=== PATIENT | female | born 1995 | race Caucasian/White ===

== ENCOUNTER 2017-04-10 02:51 | Inpatient (IN) | payer OTHER ==
[2017-04-10 04:52] LABS: BASOPHIL 0.1 % (0-2.0); MCH 26.7 pg (25.7-33.7); MCHC 32.6 g/dl (32.0-36.0); MEAN PLT VOLUME 7.5 fl (7.5-11.1); NEUTROPHILS 90.7 % (42.8-82.8); PLATELET COUNT 254 K/MM3 (134-434); RDW 15.3 % (11.6-15.6); WHITE BLOOD COUNT 16.1 K/mm3 (4.0-10.0)
--- NOTE | 2017-04-10 04:52 | HP ---
<Rigoberto Sanz - Last Filed: 04/10/17 04:47> Past Medical History - Primary Care Physician PCP:: Rigoberto Sanz - Admission Chief Complaint: 40.2 weeks, rom, labor History of Present Illness: 21 yo f , edc by sono 04/07/17, c/o contraction and leakage of fluid since 2 am,clear fluid, cx 2 cm 80 vx -3 mr, nitazine positive, clear fluid, fhr cat 1. contraction q 3 min History Source: Patient Limitations to Obtaining History: No Limitations - Past Medical History ...: 2 ...Para: 1 ... Weeks Gestation by Dates: 40.2 ...EDC by Dates: 04/08/17 ...EDC by Sono: 04/07/17 Heme/Onc: Yes: Anemia - Past Surgical History Hx Myomectomy: No Hx Transabdominal Cerclage: No - Smoking History Smoking history: Never smoked Have you smoked in the past 12 months: No - Alcohol/Substance Use Hx Alcohol Use: No History of Substance Use: reports: None - Social History History of Recent Travel: No Home Medications - Allergies Allergies/Adverse Reactions: Allergies Allergy/AdvReac Type Severity Reaction Status Date / Time No Known Allergies Allergy Verified 04/10/17 01:16 - Home Medications Home Medications: Ambulatory Orders Ferrous Sulfate [Feosol] 325 mg PO DAILY 03/11/17 Vitamins (Sjr) - 1 tab PO DAILY 03/11/17 Review of Systems - Review of Systems Constitutional: reports: No Symptoms Eyes: reports: No Symptoms HENT: reports: No Symptoms Neck: reports: No Symptoms Cardiovascular: reports: No Symptoms Respiratory: reports: No Symptoms Gastrointestinal: reports: No Symptoms Genitourinary: reports: No Symptoms Breasts: reports: No Symptoms Reported Musculoskeletal: reports: No Symptoms Integumentary: reports: No Symptoms Neurological: reports: No Symptoms Endocrine: reports: No Symptoms Hematology/Lymphatic: reports: No Symptoms Psychiatric: reports: No Symptoms Physical Exam - Maternity Constitutional: Yes: Well Nourished, No Distress, Calm Eyes: Yes: WNL, Conjunctiva Clear, EOM Intact HENT: Yes: WNL, Atraumatic, Normocephalic Neck: Yes: WNL, Supple, Trachea Midline Cardiovascular: Yes: WNL, Regular Rate and Rhythm Breast(s): Yes: WNL - Abdominal Exam/OB Fundal Height: 40 Number of Fetuses: Single Presentation: Vertex Contractions: Yes Regularity: Regular Intensity: Mod/Strong Monitor Mode: External Heart Rate Location: [facility] Category: I Accelerations: Uniform Decelerations: None - Vaginal Exam/OB Vaginal Bleediing: No Speculum Exam: No Dilatation (cm): 2 cm Effacement (%): 80 Amniotic Membrane Status: Ruptured Nitrazine Test: Positive Amniotic Fluid: Yes: Clear Presentation: Vertex/Position Station: -3 - Physical Exam Musculoskeletal: Yes: WNL Extremities: Yes: WNL Edema: Yes Edema: LLE: Trace, RLE: Trace Hemorrhage Risk Assessment - Risk Factors Medium Risk Factors: Yes: None High Risk Factors: Yes: None Risk Score: 1 Risk Level: Medium Risk Problem List - Problems (1) Post term over 40 weeks Code(s): O48.0 - POST-TERM (2) membrane rupture Code(s): ZYA6913 - (3) Labor established Code(s): UJO9427 - Assessment/Plan admit, heart monitoring, pain management <Alis Palumbo - Last Filed: 04/12/17 08:11> Past Medical History - Admission Chief Complaint: Labor pain History of Present Illness: 21 yo Para 0, admitted for labor pain. History Source: Patient Limitations to Obtaining History: No Limitations - Past Medical History ...: 1 ...Para: 0 ...EDC by Dates: 04/08/17 ...EDC by Sono: 04/07/17 - Past Surgical History Past Surgical History: Yes: None Hx Myomectomy: No Hx Transabdominal Cerclage: No - Alcohol/Substance Use Hx Alcohol Use: No History of Substance Use: reports: None - Social History Usual Living Arrangement: Yes: With Significant Other History of Recent Travel: No Family Disease History - Family Disease History Family History: Unremarkable Review of Systems - Review of Systems Constitutional: reports: No Symptoms Eyes: reports: No Symptoms HENT: reports: No Symptoms Neck: reports: No Symptoms Cardiovascular: reports: No Symptoms Respiratory: reports: No Symptoms Gastrointestinal: reports: No Symptoms Genitourinary: reports: Pain Breasts: reports: No Symptoms Reported Musculoskeletal: reports: No Symptoms Integumentary: reports: No Symptoms Neurological: reports: No Symptoms Endocrine: reports: No Symptoms Hematology/Lymphatic: reports: No Symptoms Psychiatric: reports: No Symptoms Pain Intensity: 6 Physical Exam - Maternity Vital Signs: Vital Signs Temperature 98.3 F 04/11/17 22:00 Pulse Rate 93 H 04/11/17 22:00 Respiratory Rate 18 04/11/17 22:00 Blood Pressure 101/56 04/11/17 22:00 O2 Sat by Pulse Oximetry (%) 100 04/10/17 10:10 Constitutional: Yes: Well Nourished Eyes: Yes: Conjunctiva Clear HENT: Yes: Atraumatic Neck: Yes: Supple, Trachea Midline Cardiovascular: Yes: Regular Rate and Rhythm Lungs: Clear to auscultation Breast(s): Yes: WNL - Abdominal Exam/OB Number of Fetuses: Single Presentation: Vertex - Vaginal Exam/OB Vaginal Bleediing: No Speculum Exam: No Amniotic Membrane Status: Intact Station: -2 - Physical Exam ...Motor Strength: WNL Psychiatric: Yes: Alert, Oriented - Labs Lab Results: CBC, BMP 04/11/17 07:20 04/10/17 04:20
[2017-04-10 04:55] LABS: INR 0.97 (0.82-1.09); PROTHROMBIN TIME (PATIENT) 10.7 SEC (9.98-11.88)
[2017-04-10] MEDS ORDERED: PROMETHAZINE HCL 25 MG/1 ML VIAL IVPUSH ONE (04:56)
[2017-04-10] MEDS ORDERED: BUTORPHANOL TARTRATE 1 MG/ML VIAL IVPUSH ONE (04:56)
[2017-04-10] MEDS ORDERED: DEXTROSE 5%-LACTATED RINGERS 1,000 ML IV SCH (05:00)
[2017-04-10 05:02] LABS: ANION GAP 12 (8-16); CALCIUM 8.1 mg/dL (8.5-10.1); CO2 20 mmol/L (21-32); CREATININE 0.4 mg/dL (0.55-1.02); GLUCOSE,RANDOM 97 mg/dL (74-106)
[2017-04-10 06:27] VITALS: BMI 25.4
[2017-04-10] MEDS: D5W-LR W/ 20 UNITS OXYTOCIN 1,000 ML IV SCH ×2 (08:50→10:21)
[2017-04-10] MEDS ORDERED: BENZOCAINE 28 GM HEMORRHOIDAL OINTMENT TP PRN (09:33)
[2017-04-10] MEDS ORDERED: WITCH HAZEL 50% (TUCKS) 40 PAD/JAR PAD TP PRN (09:33)
[2017-04-10] MEDS ORDERED: METHYLERGONOVINE MALEATE 0.2 MG/1 ML AMP IM PRN (09:33)
[2017-04-10] MEDS ORDERED: BISACODYL 10 MG SUPP.RECT RC PRN (09:33)
[2017-04-10] MEDS: IBUPROFEN 600 MG TABLET (FP) PO PRN ×2 (09:41→22:44)
--- NOTE | 2017-04-10 09:43 | PN ---
Delivery - Delivery Vaginal Delivery: Spontaneous Type of Anesthesia: Local Episiotomy/Laceration: Midline EBL (cc): 300 Delivery, Single - Stages of Labor Date 1st Stage Initiatied: 04/09/17 Time 1st Stage Initiated: 22:00 Date 2nd Stage Initiated: 04/10/17 Time 2nd Stage Initiated: 08:35 Date of Delivery: 04/10/17 Time of Delivery: 08:48 Time Placenta Delivered: 08:50 - Condition of Infant Dietetics Director/Head Baker Present: No Gender: Female Weight: 6 lb 3 oz Position: Right, OA Total Hours ROM (Hrs/Mins): 6hrs 50min - 1 Minute Total Score: 9 5 Minutes Total Score: 9 - Feeding Plan Initial Plan: Elected not to breastfeed exclusively throughout hospitalization Remarks - Remarks Remarks: Normal spontaneous vaginal delivery of a live girl over midline episiotomy. Nose / Oropharynx suctioned @ perineum. Nuchal darrian x 2 clamped and cut. Baby handed to Nurse. Placenta expelled spontaneously intact. Midline episiotomy repaired with 2.0 chromic.
[2017-04-10] MEDS: BENZOCAINE 20% 57 GM BOTTLE TP PRN (11:58)
[2017-04-10] MEDS: ACETAMINOPHEN 325 MG TABLET (FP) PO PRN (22:43)
[2017-04-11] MEDS: ACETAMINOPHEN 325 MG TABLET (FP) PO PRN ×2 (06:01→20:17)
[2017-04-11] MEDS: IBUPROFEN 600 MG TABLET (FP) PO PRN ×2 (06:01→20:17)
[2017-04-11 08:28] LABS: BASOPHIL 0.1 % (0-2.0); EOSINOPHIL 0.2 % (0-4.5); MCHC 32.4 g/dl (32.0-36.0); MEAN CELL VOLUME 83.4 fl (80-96); MEAN PLT VOLUME 7.3 fl (7.5-11.1); NEUTROPHILS 80.9 % (42.8-82.8); PLATELET COUNT 232 K/MM3 (134-434); RDW 15.5 % (11.6-15.6); WHITE BLOOD COUNT 18.1 K/mm3 (4.0-10.0)
[2017-04-11] MEDS ORDERED: DIPHTH,PERTUSS(ACELL),TET 0.5 ML DISP.SYRIN IM ONE (10:00)
[2017-04-11] MEDS: BENZOCAINE 20% 57 GM BOTTLE TP PRN (20:40)
[2017-04-11] MEDS ORDERED: SENNOSIDES/DOCUSATE COMBO (SENNA PLUS) TABLET (UD) PO PRN (22:00)
[2017-04-12] MEDS: IBUPROFEN 600 MG TABLET (FP) PO PRN (07:08)
[2017-04-12] MEDS: ACETAMINOPHEN 325 MG TABLET (FP) PO PRN (07:09)
--- NOTE | 2017-04-12 07:59 | DS ---
Physical Exam-DRAFTING ENGINEER Vital Signs: Vital Signs Temperature 98.3 F 04/11/17 22:00 Pulse Rate 93 H 04/11/17 22:00 Respiratory Rate 18 04/11/17 22:00 Blood Pressure 101/56 04/11/17 22:00 O2 Sat by Pulse Oximetry (%) 100 04/10/17 10:10 Constitutional: Yes: Well Nourished Eyes: Yes: Conjunctiva Clear HENT: Yes: Atraumatic Neck: Yes: Supple, Trachea Midline Cardiovascular: Yes: Regular Rate and Rhythm Respiratory: Yes: Regular, CTA Bilaterally Gastrointestinal: Yes: Normal Bowel Sounds ...Rectal Exam: Yes: WNL Renal/: Yes: WNL Pelvis: Yes: WNL External Genitalia: Yes: Normal Uterus: Yes: Firm ....Post : Yes: Uterus firm, Moderate lochia rubra Neurological: Yes: Alert, Oriented Psychiatric: Yes: Alert, Oriented Labs: CBC, BMP 04/11/17 07:20 04/10/17 04:20 Delivery - Delivery Vaginal Delivery: Spontaneous Type of Anesthesia: Local Episiotomy/Laceration: Midline EBL (cc): 300 Delivery, Single - Stages of Labor Date 1st Stage Initiatied: 04/09/17 Time 1st Stage Initiated: 22:00 Date 2nd Stage Initiated: 04/10/17 Time 2nd Stage Initiated: 08:35 Date of Delivery: 04/10/17 Time of Delivery: 08:48 Time Placenta Delivered: 08:50 - Condition of Tooth Inspector/Insurance Assistant Present: No Gender: Female Weight: 6 lb 3 oz Position: Right, OA Total Hours ROM (Hrs/Mins): 6hrs 50min - 1 Minute Total Score: 9 5 Minutes Total Score: 9 - Ferdinand Feeding Plan Initial Plan: Elected not to breastfeed exclusively throughout hospitalization Discharge Summary Reason For Visit: LABOR ADMIT Current Active Problems membrane rupture (Acute) Labor established (Acute) Post term over 40 weeks (Acute) Procedures: Principal: Normal spontaneous vaginal delivery Hospital Course: Routine care - Instructions Diet, Activity, Other Instructions: return to [facility] in 6weeks, call clinic for an appointment. Referrals: [facility] ([facility]) [Outside] - Home Medications Comprehensive Discharge Medication List: Ambulatory Orders Ferrous Sulfate [Feosol] 325 mg PO DAILY 05/17/17 Vitamins (Sjr) - 1 tab PO DAILY 03/11/17
[2017-04-12 08:40] VITALS: BP 94/60; PULSE 74; TEMP 97.8
== END 2017-04-12 11:50 | disposition home or self-care (01) | DRG 560 ==
LOC: JLDR 02:51 → J3W 10:31
PROVIDERS: ADMIT Obstetrics & Gynecology; ATTEND Obstetrics & Gynecology
PROC: 0W8NXZZ Division of Female Perineum, External Approach (ICD-10-PCS; principal; 2017-04-10)
PROC: 10E0XZZ Delivery of Products of Conception, External Approach (ICD-10-PCS; 2017-04-10)
DX: O48.0 Post-term pregnancy (principal); Z3A.40 40 weeks gestation of pregnancy; Z37.0 Single live birth
CPT/HCPCS: 36415; 59409; 80048; 85025; 85610; 85730; 86593; 86850; 86900; 86901; 90715

== ENCOUNTER 2017-04-23 14:39 | Emergency (ER) | payer OTHER ==
[2017-04-23 14:46] VITALS: BP 102/64; PULSE 116; TEMP 98.2; BMI 22.9
[2017-04-23] MEDS ORDERED: CEPHALEXIN MONOHYDRATE 500 MG CAPSULE (UD) PO ONE (15:05)
--- NOTE | 2017-04-23 15:05 | PDOC ---
History of Present Illness - General Chief Complaint: Pain Stated Complaint: FEVER Time Seen by Provider: 04/23/17 14:58 History Source: Patient Exam Limitations: No Limitations - History of Present Illness Initial Comments: 04/23/17 15:12 Patient here with complaints of right breast pain with fevers since yesterday. States has swelling to her right breast and inability to breast-feed from that side. Patient is 2 weeks , and states had onset of tenderness a few days ago to the right breast, states her child prefers feeding to the left breast. Since that time has become more swollen, more painful, and states had a fever yesterday of 102. Timing/Duration: unsure Severity: moderate Associated Symptoms: reports: fever/chills, headaches, malaise, nausea/vomiting Past History - Travel Traveled outside of the country in the last 30 days: No Close contact w/someone who was outside of country & ill: No - Past Medical History Allergies/Adverse Reactions: Allergies Allergy/AdvReac Type Severity Reaction Status Date / Time No Known Allergies Allergy Verified 04/23/17 14:41 Home Medications: Ambulatory Orders Vitamins (Sjr) - 1 tab PO DAILY 03/11/17 Cephalexin Monohydrate [Keflex -] 500 mg PO Q8H #21 capsule 04/23/17 Ibuprofen 400 mg PO Q6H PRN #30 tablet 04/23/17 Asthma: No Cancer: No Cardiac Disorders: No Diabetes: No GI Disorders: Yes HTN: No Seizures: No Thyroid Disease: No - Reproductive History (#): 1 Para: 0 Therapeutic (s) & number: Yes Spontaneous : 0 - Immunization History Immunization Up to Date: Yes - Psycho/Social/Smoking Cessation Hx Anxiety: No Suicidal Ideation: No Smoking History: Never smoked Have you smoked in the past 12 months: No Information on smoking cessation initiated: No Hx Alcohol Use: No Drug/Substance Use Hx: No Substance Use Type: None Hx Substance Use Treatment: No Review of Systems - Review of Systems Able to Perform ROS?: Yes Is the patient limited Greenlandic proficient: Yes Constitutional: Yes: Symptoms Reported, See HPI, Malaise Musculoskeletal: No: Symptoms Reported Integumentary: Yes: Symptoms Reported, See HPI, Erythema All Other Systems: Reviewed and Negative *Physical Exam - Vital Signs Last Vital Signs Temp Pulse Resp BP Pulse Ox 98.2 F 116 H 16 102/64 99 06/29/17 14:43 04/23/17 14:43 04/23/17 14:43 04/23/17 14:43 04/23/17 14:43 - Physical Exam General Appearance: Yes: Nourished, Appropriately Dressed, Apparent Distress, Mild Distress HEENT: positive: JONNIE, Normal ENT Inspection, TMs Normal, Pharynx Normal Neck: negative: Tender Respiratory/Chest: positive: Lungs Clear, Other (right breast with mass, tenderness, and erythema to the outer lower quadrant.) Integumentary: positive: Normal Color, Warm, Pale Neurologic: positive: post graduate intern II-XII NML intact, Fully Oriented, Alert, Normal Mood/ Affect Medical Decision Making - Medical Decision Making 04/23/17 15:35 nurse Sepideh, came from labor and delivery to discuss breast pump options and treatment for mastitis. Recommends vigorous massage, hot soaks, and antibiotics which are safe to be filtered through breastmilk 2 baby. Patient will start Keflex and given first dose here. *DC/Admit/Observation/Transfer Diagnosis at time of Disposition: Mastitis, acute - Discharge Dispostion Disposition: HOME Condition at time of disposition: Stable Admit: No - Patient Instructions Printed Discharge Instructions: DI for Mastitis Additional Instructions: Rest, avoid strenuous activity or heavy lifting until symptoms resolve Hot soaks, hot showers to breast as often as possible Massaged breast from armpits down into nipple to continue milk flow Breast-feeding every 2 hours to continue drainage Ibuprofen for anti-inflammatory and pain relief Keflex 500 mg tablet 3 times a day for 1 week Follow-up with BANK SALES AND SERVICE MANAGER or return to emergency department for worsened swelling/ pain, fevers
[2017-04-23] MEDS ORDERED: CEPHALEXIN MONOHYDRATE 500 MG CAPSULE (UD) ONE (15:09)
[2017-04-23] MEDS ORDERED: IBUPROFEN 600 MG TABLET (FP) PO ONE ×2 (15:35→15:38)
== END 2017-04-23 15:35 | disposition home or self-care (01) ==
LOC: JERFT 14:39
DX: O90.89 Other complications of the puerperium, not elsewhere classified (principal); O91.23 Nonpurulent mastitis associated with lactation
CPT/HCPCS: 99281-25

== ENCOUNTER 2021-02-25 13:59 | Emergency (ER) | payer OTHER ==
[2021-02-25 14:30] VITALS: BP 114/71; PULSE 62; TEMP 98.4; BMI 21.9
== END 2021-02-25 17:30 | disposition home or self-care (01) ==
LOC: JER 13:59
DX: R05 Cough (principal); Z11.52 Encounter for screening for COVID-19
CPT/HCPCS: 71046-TC-FY; 87880; 99284-25; C9803; U0003; U0005

== ENCOUNTER 2021-07-24 20:37 | Emergency (ER) | payer OTHER ==
[2021-07-24 20:43] VITALS: BP 117/78; PULSE 82; TEMP 97.9; BMI 22.9
[2021-07-24] MEDS ORDERED: KETOROLAC TROMETHAMINE 30 MG/1 ML VIAL IVPUSH ONE (21:07)
[2021-07-24] MEDS ORDERED: METOCLOPRAMIDE HCL INJECTION 10 MG/2 ML VIAL IVPB ONE (21:07)
[2021-07-24] MEDS ORDERED: METOCLOPRAMIDE HCL INJECTION 10 MG/2 ML VIAL ONE (21:09)
[2021-07-24] MEDS ORDERED: KETOROLAC TROMETHAMINE 30 MG/1 ML VIAL ONE (21:09)
== END 2021-07-24 23:22 | disposition home or self-care (01) ==
LOC: JER 20:37
PROC: 3E0333Z Introduction of Anti-inflammatory into Peripheral Vein, Percutaneous Approach (ICD-10-PCS; principal; 2021-07-24)
PROC: 3E033GC Introduction of Other Therapeutic Substance into Peripheral Vein, Percutaneous Approach (ICD-10-PCS; 2021-07-24)
DX: R51.9 Headache, unspecified (principal); G89.29 Other chronic pain
CPT/HCPCS: 70450-TC; 99284-25

== ENCOUNTER 2021-11-04 08:29 | Emergency (ER) | payer OTHER ==
[2021-11-04 08:58] VITALS: BP 131/80; PULSE 90; TEMP 98.4; BMI 26.4
[2021-11-05 11:08] LABS: SARS-CoV-2 NAA Detected (Not Detected)
== END 2021-11-04 11:05 | disposition home or self-care (01) ==
LOC: JER 08:29
DX: B34.9 Viral infection, unspecified (principal)
CPT/HCPCS: 87804; 99283-25; C9803-CS; U0003; U0005

== ENCOUNTER 2022-06-24 19:08 | Emergency (ER) | payer OTHER ==
[2022-06-24 19:14] VITALS: BP 107/74; PULSE 86; RESP 20; TEMP 98.2; BMI 21.4
[2022-06-24 21:59] LABS: BASO % 0.3 % (0-2.0); EOS % 0.2 % (0-4.5); HEMATOCRIT 42.4 % (32.4-45.2); HEMOGLOBIN 14.3 GM/dL (10.7-15.3); MCH 29.9 pg (25.7-33.7); MCHC 33.6 g/dl (32.0-36.0); MEAN CELL VOLUME 88.9 fl (80-96); MEAN PLT VOLUME 7.6 fl (7.5-11.1); MONO % 6.3 % (3.8-10.2); NEUT % 69.2 % (42.8-82.8); PLATELET COUNT 332 10^3/uL (134-434); RBC 4.77 M/mm3 (3.60-5.2); RDW 14.3 % (11.6-15.6); WHITE BLOOD COUNT 8.8 K/mm3 (4.0-10.0)
[2022-06-24 22:29] LABS: ALBUMIN 4.1 g/dl (3.4-5.0); BLOOD UREA NITROGEN 9.6 mg/dL (7-18); CALCIUM 8.7 mg/dL (8.5-10.1); MAGNESIUM 2.4 mg/dL (1.8-2.4)
[2022-06-24 22:32] LABS: CREATININE 0.5 mg/dL (0.55-1.3)
[2022-06-24 22:34] LABS: BILIRUBIN,TOTAL 0.3 mg/dL (0.2-1); TOT PROT 8.1 g/dl (6.4-8.2)
[2022-06-24] MEDS ORDERED: SODIUM CHLORIDE 0.9% 500 ML INFUS.BAG IV ONE (22:47)
[2022-06-25 00:26] LABS: EPI CELLS >36 /uL (0-25.1); HYALINE CASTS 2 /uL (0-3.1); URINE APPEARANCE TURBID; URINE BACTERIA 1003 /uL (0-1359); URINE BILIRUBIN NEGATIVE (NEGATIVE); URINE COLOR YELLOW; URINE GLUCOSE (UA) NEGATIVE (NEGATIVE); URINE KETONE TRACE (NEGATIVE); URINE LEUK ESTERASE TRACE (NEGATIVE); URINE NITRITE NEGATIVE (NEGATIVE); URINE PROTEIN NEGATIVE (NEGATIVE); URINE RBC 10 /uL (0-23.9); URINE UROBILINOGEN 0.2 mg/dL (0.2-1.0); URINE WBC 19 /uL (0-25.8)
== END 2022-06-25 02:01 | disposition home or self-care (01) ==
LOC: JER 19:08
DX: R55 Syncope and collapse (principal)
CPT/HCPCS: 36415; 70450-TC; 71046-TC-FY; 80053; 81003; 83735; 84132; 84703; 85025; 87086; 93005; 93010; 99284-25

== ENCOUNTER 2023-11-27 08:31 | Emergency (ER) | payer SELFPAY ==
[2023-11-27 08:49] VITALS: BP 116/67; TEMP 98; BMI 22.2
[2023-11-27] MEDS ORDERED: guaiFENesin/D-METHORPHAN HB 10 ML UNIT-DOSE CUPS PO ONE (09:53)
[2023-11-27] MEDS ORDERED: IBUPROFEN 400 MG TABLET (FP) PO ONE ×2 (09:53→10:10)
[2023-11-27] MEDS ORDERED: guaiFENesin/D-METHORPHAN HB 10 ML UNIT-DOSE CUPS ONE (10:10)
[2023-11-27 11:01] LABS: THROAT:GRP A STREP NOT DETECTED (NOTDETECTED)
[2023-11-27 11:38] VITALS: PULSE 89; RESP 20
== END 2023-11-27 12:51 | disposition home or self-care (01) ==
LOC: JERFT 08:31
DX: J06.9 Acute upper respiratory infection, unspecified (principal); B34.9 Viral infection, unspecified; J00 Acute nasopharyngitis [common cold]; R09.81 Nasal congestion; R07.0 Pain in throat; R05.9 Cough, unspecified; R50.9 Fever, unspecified; R11.0 Nausea; R51.9 Headache, unspecified; R07.89 Other chest pain; Z20.822 Contact with and (suspected) exposure to COVID-19
CPT/HCPCS: 0241U-QW; 71046-TC-FY; 87651; 99284-25